=== PATIENT | male | born 1965 | race Caucasian/White ===

== ENCOUNTER 2017-10-06 11:16 | Emergency (ER) | payer OTHER ==
[2017-10-06 13:15] LABS: URINE BLOOD (Dip) POC Negative (NEGATIVE); URINE GLUCOSE (Dip) POC Negative (NEGATIVE); URINE KETONES (Dip) POC Negative (NEGATIVE); URINE LEUKOCYTE EST (Dip) POC Negative (NEGATIVE); URINE NITRITE (Dip) POC Negative (NEGATIVE); URINE TOTAL PROTEIN POC Negative (NEGATIVE)
[2017-10-06 13:15] LABS: URINE PH (Dip) POC 5.5 (5.0-8.5)
== END 2017-10-06 14:48 | disposition home or self-care (01) ==
LOC: FTE 11:16
DX: M79.604 Pain in right leg (principal); Z87.891 Personal history of nicotine dependence
CPT/HCPCS: 73590; 81003; 93971; 99284-25